=== PATIENT | female | born 1975 | race Caucasian/White ===

== ENCOUNTER 2022-07-02 15:29 | Emergency (ER) | payer MEDICAID ==
[~2022-07-02] VITALS: Ht 170.2 cm; Wt 72.6 kg
--- NOTE | 2022-07-02 16:21 | NUR ---
Gave pt d/c instructions, pt verbalized understanding. Translated by staff.
== END 2022-07-02 16:25 | disposition home or self-care (01) ==
LOC: ER 15:43
DX: I10 Essential (primary) hypertension (principal); R51.9 Headache, unspecified; F41.9 Anxiety disorder, unspecified
CPT/HCPCS: A4663

== ENCOUNTER 2025-07-03 20:05 | Emergency (ER) | payer MEDICAID, OTHER ==
[~2025-07-03] VITALS: Ht 157.5 cm; Wt 65.8 kg
[2025-07-03 20:10] VITALS: BP 150/103
[2025-07-03] MEDS ORDERED: HYDROCODONE/APAP 5-325MG TABLET ONE (21:19)
[2025-07-03] MEDS: HYDROCODONE/APAP 5-325MG TABLET PO ONE (21:20)
[2025-07-03] MEDS ORDERED: LIDOCAINE HCL 2% 20 ML VIAL ONE (21:21)
[2025-07-03] MEDS: LIDOCAINE HCL 1% 20 ML VIAL IJ ONE (21:22)
[2025-07-03 23:10] VITALS: BP 136/99; O2SAT 98
== END 2025-07-03 23:12 | disposition home or self-care (01) ==
LOC: ER 20:08
DX: S63.296A Dislocation of distal interphalangeal joint of right little finger, initial encounter (principal); M79.644 Pain in right finger(s); M79.641 Pain in right hand; R03.0 Elevated blood-pressure reading, without diagnosis of hypertension; W01.0XXA Fall on same level from slipping, tripping and stumbling without subsequent striking against object, initial encounter; Y93.01 Activity, walking, marching and hiking; Y92.89 Other specified places as the place of occurrence of the external cause; Y99.8 Other external cause status
CPT/HCPCS: 99284; 28660; 73130; 73140; J3490; A4606; A4663